=== PATIENT | female | born 1940 | race Caucasian/White ===

== ENCOUNTER → 2016-06-25 | Outpatient (CLI) | payer MEDICARE, BC ==
[~2016-06-25] MED LIST: ATIVAN-DPS0.5 MG PO; CALCIUM600 MG PO; CRANBERRY405 MG PO; HYDRODIURIL-DPS25 MG PO; KEFLEX-DPS500 MG PO; NORVASC5 MG PO; ULTRAM DPS50 MG PO; VITAMIN D50000 UNI1 PO; ZOCOR DPS20 MG PO; ZYLOPRIM-DPS300 MG PO
--- NOTE | ~2016-06-25 | ECH ---
Transthoracic Echocardiography Report (TTE) Demographics Patient Name SANTOS HERNANDEZ Date of Study 06/25/2016 Patient Number [id number] Visit Number [id number] Date of 1940 Room Number Accession Number [id number] Gender Female Age 75 year(s) Referring Martha Ugarte Bone Char Operator Shanan Saleem [facility] Physician Physician Interpreting Kristin Michaels Flat Lock Operator Physician Supervising Ordering Physician Flavio Beach MD/MLP PAC Nurse Stress Chemical Dependency Nurse Conclusions Contractility Score Summary Normal Left Ventricular contractility was noted. Summary Limited study for ejection fraction. Doppler not performed. Technically good exam. The estimated left ventricular ejection fraction is 60%. No significant valvular abnormalities. Recommendation The patient will be given the results of this study by the physician who ordered the exam. Procedure Type of Study TTE procedure:Echo Limited SF. Procedure Date Date: 06/25/2016 Start: 01:17 PM Technical Quality: Good visualization Indications:History of Breast Cancer, Monitoring for Herceptin . Appropriate Use Criteria: 9 Height: 64 inches Weight: 180 pounds BSA: 1.87 m Rhythm: Sinus with bundle branch block HR: 63 bpm BP: 141/75 mmHg M-Mode/2D Measurements LV Diastolic Dimension: 4.85 cm LV Systolic Dimension: 3.17 cm LV Septum Diastolic: 0.9 cm LV PW Diastolic: 0.87 cm AO Root Dimension: 2.83 cm LA Dimension: 3.7 cm RV Diastolic Dimension: 4.06 cm LA volume: 45.26 ml LA volume index: 24 ml/m RV Base: 3.7 cm RV Mid: 2.9 cm TAPSE: 2.1 cm Doppler Measurements RA Area: 17.09 cm Findings Left Ventricle Normal left ventricle size and function. Right Ventricle Normal right ventricle structure and function. Left Atrium Normal left atrial size. Right Atrium Normal right atrial size. Mitral Valve Normal mitral valve structure and function. Aortic Valve Normal aortic valve structure and function. Tricuspid Valve Normal tricuspid valve structure and function. Pulmonic Valve Normal pulmonic valve structure and function. Pericardial Effusion No evidence of pericardial effusion. Miscellaneous Visualized portions of the aortic root and ascending aorta appear normal in size. Pleural Effusion No evidence of pleural effusion. Contractility Score LV regional wall motion:(0-Non visualized 1-Normal 2-Hypokinesis 3-Akinesis 4-Dyskinesis 5-Aneurysm) Signature
== END | disposition home or self-care (01) ==
LOC: CARD 12:56
DX: Z51.81 Encounter for therapeutic drug level monitoring (principal); C50.912 Malignant neoplasm of unspecified site of left female breast; Z79.899 Other long term (current) drug therapy